=== PATIENT | male | born 1960 | race Two or more races ===

== ENCOUNTER 2020-07-31 11:45 | Inpatient (IN) | payer OTHER ==
[~2020-07-31] VITALS: Ht 177.8 cm; Wt 79.4 kg
[2020-07-31] MEDS ORDERED: ZESTRIL5 MG PO (15:07)
[2020-07-31] MEDS ORDERED: LIPITOR40 M1 PO (15:08)
[2020-08-07] MEDS ORDERED: LISINOPRIL-HCT1 EAC1 (08:23)
== END 2020-08-09 13:49 | disposition home or self-care (01) | DRG 707 ==
LOC: O/R 08-07 05:31 → SURH 08-07 07:00 → SURG 08-07 13:22
PROVIDERS: ADMIT Urology; ATTEND Urology
PROC: 07BC0ZX Excision of Pelvis Lymphatic, Open Approach, Diagnostic (ICD-10-PCS; 2020-08-07)
PROC: 0TBD0ZX Excision of Urethra, Open Approach, Diagnostic (ICD-10-PCS; 2020-08-07)
PROC: 0VT00ZZ Resection of Prostate, Open Approach (ICD-10-PCS; principal; 2020-08-07 07:00)
DX: C61 Malignant neoplasm of prostate (principal); C79.19 Secondary malignant neoplasm of other urinary organs; I10 Essential (primary) hypertension